=== PATIENT | male | born 1980 | race Caucasian/White ===

== ENCOUNTER 2017-08-20 22:43 | Inpatient (IN) | payer BC, MEDICAID ==
[~2017-08-20] VITALS: Ht 188 cm; Wt 95.3 kg
[~2017-08-20 22:43] MED LIST: BUPR300T53 PO; CLON0.1T PO; ESCI20TA PO; OLAN10TA3 PO; TRAZ-147 PO
[2017-08-20 23:22] LABS: BASOPHILS # (AUTO) 0.07 K/uL (0.00-0.20); BASOPHILS % (AUTO) 0.5 % (0.0-2.0); EOSINOPHILS # (AUTO) 0.15 K/uL (0.00-0.70); EOSINOPHILS % (AUTO) 1.07 % (1.0-6.0); HEMATOCRIT 42.3 % (41-53); HEMOGLOBIN 14.1 g/dL (13.5-17.5); LYMPHOCYTES # (AUTO) 3.1 K/uL (1.0-4.8); LYMPHOCYTES % (AUTO) 22.2 % (22.0-44.0); MEAN CORPUSCULAR HGB CONC 33.4 G/dL (31.0-37.0); MEAN CORPUSCULAR VOLUME 87 fL (80-100); MONOCYTES # (AUTO) 1.2 K/uL (0.1-1.0); MONOCYTES % (AUTO) 8.7 % (2.0-9.0); NEUTROPHILS # (AUTO) 9.4 K/uL (1.8-7.7); NEUTROPHILS % (AUTO) 67.5 % (40.0-70.0); PLATELET COUNT (AUTO) 297 K/uL (150-450); RED BLOOD CELL COUNT(AUTO) 4.87 MIL/uL (4.50-5.90); RED CELL DISTRIBUTION WIDTH 14.1 % (11.5-14.5)
[2017-08-20] MEDS ORDERED: OLANZapine 5 MG RAPDIS TABLET PO PRN (23:30)
[2017-08-20] MEDS ORDERED: LORazepam 2 MG TABLET PO PRN (23:30)
[2017-08-20 23:31] LABS: ANION GAP 15 mmol/L (8-16); CALCIUM, TOTAL 9.4 mg/dL (8.8-10.5); CARBON DIOXIDE 23 mmol/L (22-29); CHLORIDE 99 mmol/L (98-107); CREATININE 1.25 mg/dL (0.60-1.30); GLOMERULAR FILTR. RATE CALC > 60 mL/min (>60); POTASSIUM 3.8 mmol/L (3.5-5.1); SODIUM SERUM 137 mmol/L (136-145); UREA NITROGEN, BLOOD 27 mg/dL (7-18)
[2017-08-20 23:45] LABS: ALANINE AMINOTRANSFERASE 100 U/L (12-78); ALBUMIN 4.1 g/dL (3.4-5.0); ASPARTATE AMINOTRANSFERASE 37 U/L (15-37); BILIRUBIN,TOTAL 1.3 mg/dL (0.1-1.0); CHOL/HDL RATIO 9.1 (4.2-7.3); THYROID STIMULATING HORMONE 2.89 uIU/mL (0.36-3.74); TOTAL PROTEIN, SERUM 7.8 g/dL (6.4-8.2)
[2017-08-20 23:52] LABS: APPEARANCE,URINE CLOUDY (CLEAR); GLUCOSE, URINE (UA) NEGATIVE (NEGATIVE); KETONES,URINE 40 mg/dL (NEGATIVE); LEUKOCYTE ESTERASE ,URINE NEGATIVE (NEGATIVE); OCCULT BLOOD,URINE NEGATIVE (NEGATIVE); PH,URINE 5.5 (5.0-8.0); PROTEIN,URINE TRACE (NEGATIVE)
[2017-08-20 23:53] LABS: ADD UA MICROSCOPIC NO
[2017-08-21] MEDS ORDERED: POLYETHYLENE GLYCOL 3350 17 GM PACKET PO ONE (00:45)
[2017-08-21] MEDS ORDERED: ELVI1TAB3 PO ×2 (01:37→01:54)
[2017-08-21] MEDS ORDERED: DiphenhydrAMINE HCL 50 MG/ML VIAL IM ONE ×2 (02:45)
[2017-08-21] MEDS ORDERED: HALOPERIDOL LACTATE 5 MG/ML VIAL IM ONE ×2 (02:45)
[2017-08-21] MEDS ORDERED: LORazepam 2 MG/ML VIAL IM ONE ×2 (02:45)
[2017-08-21] MEDS: ZOLPIDEM TARTRATE 10 MG TABLET PO PRN (03:48)
[2017-08-21 03:50] VITALS: BP 120/65
[2017-08-21] MEDS ORDERED: INFLUENZA VIRUS VACCINE QVS 2017-18 (3YR+)/PF 60 MCG/0.5 ML SYRINGE IM ONE (04:00)
[2017-08-21] MEDS ORDERED: PNEUMOCOCCAL VACCINE POLYVALENT 0.5 ML VIAL [PPSV23] IM ONE (04:00)
[2017-08-21 09:13] VITALS: BP 107/59
[2017-08-21 16:00] VITALS: BP 112/67
[2017-08-21] MEDS: OLANZapine 10 MG TABLET PO SCH (20:15)
[2017-08-21] MEDS: TraZODone HCL 100 MG TABLET PO SCH (20:15)
[2017-08-22] MEDS: ZOLPIDEM TARTRATE 10 MG TABLET PO PRN ×2 (01:46→20:51)
[2017-08-22] MEDS ORDERED: IBUPROFEN 600 MG TABLET PO PRN (08:45)
[2017-08-22] MEDS ORDERED: ACETAMINOPHEN 325 MG TABLET PO PRN (08:45)
[2017-08-22] MEDS: LORazepam 2 MG TABLET PO PRN (16:59)
[2017-08-22] MEDS: NYSTATIN 500,000 UNITS/5 ML SUSPENSION UDCUP PO SCH ×2 (17:00→22:03)
[2017-08-22] MEDS ORDERED: *PATIENT'S OWN MED [ENTER DRUG, DOSE, FREQUENCY IN COMMENTS] CLINICAL ONE ×2 (17:45)
[2017-08-22] MEDS: OLANZapine 10 MG TABLET PO SCH (20:51)
[2017-08-22] MEDS: TraZODone HCL 100 MG TABLET PO SCH (20:51)
[2017-08-23] MEDS: LORazepam 2 MG TABLET PO PRN ×3 (00:24→17:06)
[2017-08-23 01:57] VITALS: BP 109/68
[2017-08-23] MEDS: COBICISTAT PO SCH (06:32)
[2017-08-23] MEDS: NYSTATIN 500,000 UNITS/5 ML SUSPENSION UDCUP PO SCH ×5 (06:32→21:27)
[2017-08-23] MEDS: EMTRICITABINE PO SCH (06:32)
[2017-08-23] MEDS: ELVITEGRAVIR PO SCH (06:32)
[2017-08-23] MEDS: TENOFOVIR ALAFENAMIDE PO SCH (06:32)
[2017-08-23] MEDS: [UNRECOGNIZED DRUG - OTHER] PO SCH (06:32)
[2017-08-23] MEDS: ATORVASTATIN CALCIUM 40 MG TABLET PO SCH (08:31)
[2017-08-23] MEDS: OLANZapine 10 MG TABLET PO SCH (21:22)
[2017-08-23] MEDS: ZOLPIDEM TARTRATE 10 MG TABLET PO PRN (21:23)
[2017-08-23] MEDS: TraZODone HCL 100 MG TABLET PO SCH (21:23)
[2017-08-24] MEDS: LORazepam 2 MG TABLET PO PRN ×3 (01:02→20:34)
[2017-08-24 01:12] VITALS: BP 119/98
[2017-08-24] MEDS: [UNRECOGNIZED DRUG - OTHER] PO SCH (06:26)
[2017-08-24] MEDS: ELVITEGRAVIR PO SCH (06:26)
[2017-08-24] MEDS: COBICISTAT PO SCH (06:26)
[2017-08-24] MEDS: EMTRICITABINE PO SCH (06:26)
[2017-08-24] MEDS: NYSTATIN 500,000 UNITS/5 ML SUSPENSION UDCUP PO SCH ×5 (06:26→20:57)
[2017-08-24] MEDS: TENOFOVIR ALAFENAMIDE PO SCH (06:26)
[2017-08-24] MEDS: ATORVASTATIN CALCIUM 40 MG TABLET PO SCH (08:23)
[2017-08-24 16:35] VITALS: BP 128/83
[2017-08-24] MEDS: OLANZapine 10 MG TABLET PO SCH (20:34)
[2017-08-24] MEDS: TraZODone HCL 100 MG TABLET PO SCH (20:34)
[2017-08-24] MEDS: ZOLPIDEM TARTRATE 10 MG TABLET PO PRN (20:34)
[2017-08-25 00:21] VITALS: BP 140/86
[2017-08-25] MEDS: [UNRECOGNIZED DRUG - OTHER] PO SCH (06:14)
[2017-08-25] MEDS: NYSTATIN 500,000 UNITS/5 ML SUSPENSION UDCUP PO SCH ×5 (06:14→21:01)
[2017-08-25] MEDS: TENOFOVIR ALAFENAMIDE PO SCH (06:14)
[2017-08-25] MEDS: COBICISTAT PO SCH (06:14)
[2017-08-25] MEDS: ELVITEGRAVIR PO SCH (06:14)
[2017-08-25] MEDS: EMTRICITABINE PO SCH (06:14)
[2017-08-25 08:13] VITALS: BP 118/64
[2017-08-25] MEDS: ATORVASTATIN CALCIUM 40 MG TABLET PO SCH (09:22)
[2017-08-25] MEDS ORDERED: PROMETHAZINE HCL 25 MG TABLET PO PRN (13:30)
[2017-08-25] MEDS ORDERED: TUBERCULIN, PURIFIED PROTEIN DERIVATIVE 5 TU/0.1 ML SYG ID ONE (13:30)
[2017-08-25] MEDS ORDERED: MAGNESIUM HYDROXIDE SUSPENSION 30 ML UDCUP PO PRN (13:30)
[2017-08-25] MEDS ORDERED: GuaiFENesin/D-METHORPHAN [SUGAR-FREE] 200-20MG/10 ML SYRUP UDCUP PO PRN (13:30)
[2017-08-25] MEDS ORDERED: MAG HYDROX/AL HYDROX/SIMETH ES 30 ML SUSPENSION UDCUP PO PRN (13:30)
[2017-08-25] MEDS ORDERED: ACETAMINOPHEN 325 MG TABLET PO PRN (13:30)
[2017-08-25] MEDS: LORazepam 2 MG TABLET PO PRN (16:54)
[2017-08-25] MEDS: THIAMINE HCL 100 MG TABLET PO SCH (16:54)
[2017-08-25] MEDS ORDERED: OLANZapine 5 MG RAPDIS TABLET PO PRN (17:15)
[2017-08-25] MEDS: DIVALPROEX SODIUM 500 MG ER TABLET PO SCH (20:38)
[2017-08-25] MEDS: TraZODone HCL 100 MG TABLET PO SCH (20:39)
[2017-08-25] MEDS: ZOLPIDEM TARTRATE 10 MG TABLET PO PRN (20:39)
[2017-08-25] MEDS ORDERED: QUEtiapine FUMARATE 200 MG TABLET PO SCH (21:00)
[2017-08-25] MEDS ORDERED: OLANZapine 5 MG RAPDIS TABLET PO SCH (21:00)
[2017-08-26 03:30] VITALS: BP 117/69
[2017-08-26] MEDS: LORazepam 2 MG TABLET PO PRN ×3 (03:39→16:44)
[2017-08-26] MEDS: [UNRECOGNIZED DRUG - OTHER] PO SCH (06:19)
[2017-08-26] MEDS: COBICISTAT PO SCH (06:19)
[2017-08-26] MEDS: EMTRICITABINE PO SCH (06:19)
[2017-08-26] MEDS: TENOFOVIR ALAFENAMIDE PO SCH (06:19)
[2017-08-26] MEDS: ELVITEGRAVIR PO SCH (06:19)
[2017-08-26] MEDS: NYSTATIN 500,000 UNITS/5 ML SUSPENSION UDCUP PO SCH ×5 (06:19→20:51)
[2017-08-26 08:11] VITALS: BP 114/62
[2017-08-26] MEDS: NALTREXONE HCL 50 MG TABLET PO SCH (09:00)
[2017-08-26] MEDS: ATORVASTATIN CALCIUM 40 MG TABLET PO SCH (09:00)
[2017-08-26] MEDS: FOLIC ACID 1 MG TABLET PO SCH (09:00)
[2017-08-26] MEDS: THIAMINE HCL 100 MG TABLET PO SCH ×2 (09:00→16:44)
[2017-08-26] MEDS: MULTIVITAMINS WITH MINERALS, THERAPEUTIC TABLET PO SCH (09:00)
[2017-08-26 15:11] LABS: HIV CONFIRM? YES (NP)
[2017-08-26 16:00] VITALS: BP 113/85
[2017-08-26] MEDS: HydrOXYzine PAMOATE 50 MG CAPSULE PO PRN (16:44)
[2017-08-26] MEDS: DIVALPROEX SODIUM 500 MG ER TABLET PO SCH (20:51)
[2017-08-26] MEDS: ZOLPIDEM TARTRATE 10 MG TABLET PO PRN (20:51)
[2017-08-26] MEDS: QUEtiapine FUMARATE 200 MG TABLET PO SCH (20:51)
[2017-08-26] MEDS: TraZODone HCL 100 MG TABLET PO SCH (20:51)
[2017-08-27] MEDS: NYSTATIN 500,000 UNITS/5 ML SUSPENSION UDCUP PO SCH ×5 (05:31→21:04)
[2017-08-27 05:52] VITALS: BP 111/84
[2017-08-27] MEDS: TENOFOVIR ALAFENAMIDE PO SCH (06:36)
[2017-08-27] MEDS: ELVITEGRAVIR PO SCH (06:36)
[2017-08-27] MEDS: [UNRECOGNIZED DRUG - OTHER] PO SCH (06:36)
[2017-08-27] MEDS: COBICISTAT PO SCH (06:36)
[2017-08-27] MEDS: EMTRICITABINE PO SCH (06:36)
[2017-08-27 08:21] VITALS: BP 121/69
[2017-08-27] MEDS: THIAMINE HCL 100 MG TABLET PO SCH ×2 (09:25→16:54)
[2017-08-27] MEDS: MULTIVITAMINS WITH MINERALS, THERAPEUTIC TABLET PO SCH (09:25)
[2017-08-27] MEDS: NALTREXONE HCL 50 MG TABLET PO SCH (09:25)
[2017-08-27] MEDS: ATORVASTATIN CALCIUM 40 MG TABLET PO SCH (09:25)
[2017-08-27] MEDS: FOLIC ACID 1 MG TABLET PO SCH (09:25)
[2017-08-27 16:00] VITALS: BP 116/67
[2017-08-27] MEDS: HydrOXYzine PAMOATE 50 MG CAPSULE PO PRN (16:54)
[2017-08-27] MEDS: LORazepam 2 MG TABLET PO PRN (16:54)
[2017-08-27] MEDS: QUEtiapine FUMARATE 200 MG TABLET PO SCH (20:38)
[2017-08-27] MEDS: DIVALPROEX SODIUM 500 MG ER TABLET PO SCH (20:38)
[2017-08-27] MEDS: TraZODone HCL 100 MG TABLET PO SCH (20:38)
[2017-08-28 05:16] VITALS: BP 118/75
[2017-08-28] MEDS: NYSTATIN 500,000 UNITS/5 ML SUSPENSION UDCUP PO SCH ×5 (06:06→21:11)
[2017-08-28] MEDS: [UNRECOGNIZED DRUG - OTHER] PO SCH (06:38)
[2017-08-28] MEDS: ELVITEGRAVIR PO SCH (06:38)
[2017-08-28] MEDS: TENOFOVIR ALAFENAMIDE PO SCH (06:38)
[2017-08-28] MEDS: EMTRICITABINE PO SCH (06:38)
[2017-08-28] MEDS: COBICISTAT PO SCH (06:38)
[2017-08-28] MEDS: FOLIC ACID 1 MG TABLET PO SCH (08:59)
[2017-08-28] MEDS: THIAMINE HCL 100 MG TABLET PO SCH ×2 (08:59→16:21)
[2017-08-28] MEDS: NALTREXONE HCL 50 MG TABLET PO SCH (08:59)
[2017-08-28] MEDS: CLOTRIMAZOLE 1% 15 GM CREAM TP SCH ×2 (08:59→16:21)
[2017-08-28] MEDS: ATORVASTATIN CALCIUM 40 MG TABLET PO SCH (08:59)
[2017-08-28] MEDS: MULTIVITAMINS WITH MINERALS, THERAPEUTIC TABLET PO SCH (08:59)
[2017-08-28 09:19] VITALS: BP 101/59
[2017-08-28 16:30] VITALS: BP 112/63
[2017-08-28] MEDS: TraZODone HCL 100 MG TABLET PO SCH (20:30)
[2017-08-28] MEDS: QUEtiapine FUMARATE 200 MG TABLET PO SCH (20:30)
[2017-08-28] MEDS: DIVALPROEX SODIUM 500 MG ER TABLET PO SCH (20:30)
[2017-08-29 00:10] VITALS: BP 117/71
[2017-08-29] MEDS: ZOLPIDEM TARTRATE 10 MG TABLET PO PRN ×2 (01:05→20:35)
[2017-08-29] MEDS: NYSTATIN 500,000 UNITS/5 ML SUSPENSION UDCUP PO SCH ×5 (05:57→20:34)
[2017-08-29] MEDS: ELVITEGRAVIR PO SCH (06:11)
[2017-08-29] MEDS: [UNRECOGNIZED DRUG - OTHER] PO SCH (06:11)
[2017-08-29] MEDS: EMTRICITABINE PO SCH (06:11)
[2017-08-29] MEDS: TENOFOVIR ALAFENAMIDE PO SCH (06:11)
[2017-08-29] MEDS: COBICISTAT PO SCH (06:11)
[2017-08-29] MEDS: MULTIVITAMINS WITH MINERALS, THERAPEUTIC TABLET PO SCH (08:23)
[2017-08-29] MEDS: CLOTRIMAZOLE 1% 15 GM CREAM TP SCH ×2 (08:23→16:48)
[2017-08-29] MEDS: FOLIC ACID 1 MG TABLET PO SCH (08:23)
[2017-08-29] MEDS: THIAMINE HCL 100 MG TABLET PO SCH ×2 (08:23→16:49)
[2017-08-29] MEDS: NALTREXONE HCL 50 MG TABLET PO SCH (08:23)
[2017-08-29] MEDS: ATORVASTATIN CALCIUM 40 MG TABLET PO SCH (08:23)
[2017-08-29 16:00] VITALS: BP 112/67
[2017-08-29] MEDS: HydrOXYzine PAMOATE 50 MG CAPSULE PO PRN (16:49)
[2017-08-29] MEDS: LORazepam 2 MG TABLET PO PRN (16:49)
[2017-08-29] MEDS: DIVALPROEX SODIUM 500 MG ER TABLET PO SCH (20:34)
[2017-08-29] MEDS: QUEtiapine FUMARATE 200 MG TABLET PO SCH (20:34)
[2017-08-29] MEDS: TraZODone HCL 100 MG TABLET PO SCH (20:34)
[2017-08-30] MEDS: NYSTATIN 500,000 UNITS/5 ML SUSPENSION UDCUP PO SCH ×5 (06:18→22:01)
[2017-08-30] MEDS: EMTRICITABINE PO SCH (06:19)
[2017-08-30] MEDS: COBICISTAT PO SCH (06:19)
[2017-08-30] MEDS: TENOFOVIR ALAFENAMIDE PO SCH (06:19)
[2017-08-30] MEDS: [UNRECOGNIZED DRUG - OTHER] PO SCH (06:19)
[2017-08-30] MEDS: ELVITEGRAVIR PO SCH (06:19)
[2017-08-30 08:23] VITALS: BP 108/65
[2017-08-30] MEDS: ATORVASTATIN CALCIUM 40 MG TABLET PO SCH (08:30)
[2017-08-30] MEDS: CLOTRIMAZOLE 1% 15 GM CREAM TP SCH ×2 (08:30→16:17)
[2017-08-30] MEDS: NALTREXONE HCL 50 MG TABLET PO SCH (08:30)
[2017-08-30] MEDS: LORazepam 2 MG TABLET PO PRN ×2 (12:15→16:17)
[2017-08-30 16:00] VITALS: BP 125/70
[2017-08-30] MEDS: QUEtiapine FUMARATE 200 MG TABLET PO SCH (20:41)
[2017-08-30] MEDS: DIVALPROEX SODIUM 500 MG ER TABLET PO SCH (20:41)
[2017-08-30] MEDS: TraZODone HCL 100 MG TABLET PO SCH (20:41)
[2017-08-31] MEDS: ZOLPIDEM TARTRATE 10 MG TABLET PO PRN (00:41)
[2017-08-31 06:29] VITALS: BP 116/77
[2017-08-31] MEDS: NYSTATIN 500,000 UNITS/5 ML SUSPENSION UDCUP PO SCH ×5 (06:44→21:05)
[2017-08-31] MEDS: ELVITEGRAVIR PO SCH (06:45)
[2017-08-31] MEDS: EMTRICITABINE PO SCH (06:45)
[2017-08-31] MEDS: COBICISTAT PO SCH (06:45)
[2017-08-31] MEDS: TENOFOVIR ALAFENAMIDE PO SCH (06:45)
[2017-08-31] MEDS: [UNRECOGNIZED DRUG - OTHER] PO SCH (06:45)
[2017-08-31] MEDS: CLOTRIMAZOLE 1% 15 GM CREAM TP SCH ×2 (08:21→17:03)
[2017-08-31] MEDS: NALTREXONE HCL 50 MG TABLET PO SCH (08:21)
[2017-08-31] MEDS: ATORVASTATIN CALCIUM 40 MG TABLET PO SCH (08:21)
[2017-08-31 16:00] VITALS: BP 112/68
[2017-08-31] MEDS: TraZODone HCL 100 MG TABLET PO SCH (20:26)
[2017-08-31] MEDS: DIVALPROEX SODIUM 500 MG ER TABLET PO SCH (20:26)
[2017-08-31] MEDS: QUEtiapine FUMARATE 200 MG TABLET PO SCH (20:26)
[2017-09-01 02:25] VITALS: BP 118/73
[2017-09-01] MEDS: QUEtiapine FUMARATE 100 MG TABLET PO PRN (02:28)
[2017-09-01] MEDS: NYSTATIN 500,000 UNITS/5 ML SUSPENSION UDCUP PO SCH ×5 (06:14→22:00)
[2017-09-01] MEDS: EMTRICITABINE PO SCH (06:23)
[2017-09-01] MEDS: ELVITEGRAVIR PO SCH (06:23)
[2017-09-01] MEDS: COBICISTAT PO SCH (06:23)
[2017-09-01] MEDS: [UNRECOGNIZED DRUG - OTHER] PO SCH (06:23)
[2017-09-01] MEDS: TENOFOVIR ALAFENAMIDE PO SCH (06:23)
[2017-09-01 08:13] VITALS: BP 112/69
[2017-09-01] MEDS: NALTREXONE HCL 50 MG TABLET PO SCH (08:49)
[2017-09-01] MEDS: CLOTRIMAZOLE 1% 15 GM CREAM TP SCH ×2 (08:50→17:03)
[2017-09-01] MEDS: ATORVASTATIN CALCIUM 40 MG TABLET PO SCH (08:50)
[2017-09-01 16:00] VITALS: BP 113/73
[2017-09-01] MEDS: QUEtiapine FUMARATE 200 MG TABLET PO SCH (20:52)
[2017-09-01] MEDS: DIVALPROEX SODIUM 500 MG ER TABLET PO SCH (20:52)
[2017-09-01] MEDS: TraZODone HCL 100 MG TABLET PO SCH (20:52)
[2017-09-02 05:50] VITALS: BP 119/73
[2017-09-02] MEDS: NYSTATIN 500,000 UNITS/5 ML SUSPENSION UDCUP PO SCH ×5 (06:33→20:32)
[2017-09-02] MEDS: EMTRICITABINE PO SCH (06:33)
[2017-09-02] MEDS: COBICISTAT PO SCH (06:33)
[2017-09-02] MEDS: TENOFOVIR ALAFENAMIDE PO SCH (06:33)
[2017-09-02] MEDS: ELVITEGRAVIR PO SCH (06:33)
[2017-09-02] MEDS: [UNRECOGNIZED DRUG - OTHER] PO SCH (06:33)
[2017-09-02 08:32] VITALS: BP 114/60
[2017-09-02] MEDS: CLOTRIMAZOLE 1% 15 GM CREAM TP SCH ×2 (09:02→17:59)
[2017-09-02] MEDS: ATORVASTATIN CALCIUM 40 MG TABLET PO SCH (09:02)
[2017-09-02] MEDS: NALTREXONE HCL 50 MG TABLET PO SCH (09:02)
[2017-09-02] MEDS: QUEtiapine FUMARATE 100 MG TABLET PO PRN (10:58)
[2017-09-02 16:16] VITALS: BP 119/68
[2017-09-02] MEDS ORDERED: TRAZ-147 PO (16:51)
[2017-09-02] MEDS ORDERED: DIVA500T52 PO (16:51)
[2017-09-02] MEDS ORDERED: NALT50TA PO (16:51)
[2017-09-02] MEDS: DIVALPROEX SODIUM 500 MG ER TABLET PO SCH (20:31)
[2017-09-02] MEDS: TraZODone HCL 100 MG TABLET PO SCH (20:31)
[2017-09-02] MEDS ORDERED: QUEtiapine FUMARATE 300 MG TABLET PO SCH (21:00)
[2017-09-03 05:25] VITALS: BP 120/70
[2017-09-03] MEDS: NYSTATIN 500,000 UNITS/5 ML SUSPENSION UDCUP PO SCH ×5 (07:04→21:24)
[2017-09-03] MEDS: COBICISTAT PO SCH (07:05)
[2017-09-03] MEDS: ELVITEGRAVIR PO SCH (07:05)
[2017-09-03] MEDS: TENOFOVIR ALAFENAMIDE PO SCH (07:05)
[2017-09-03] MEDS: [UNRECOGNIZED DRUG - OTHER] PO SCH (07:05)
[2017-09-03] MEDS: EMTRICITABINE PO SCH (07:05)
[2017-09-03] MEDS: CLOTRIMAZOLE 1% 15 GM CREAM TP SCH ×2 (08:32→16:33)
[2017-09-03] MEDS: NALTREXONE HCL 50 MG TABLET PO SCH (08:32)
[2017-09-03] MEDS: ATORVASTATIN CALCIUM 40 MG TABLET PO SCH (08:32)
[2017-09-03 09:22] VITALS: BP 118/58
[2017-09-03 16:00] VITALS: BP 125/76
[2017-09-03] MEDS ORDERED: QUET300T18 PO (17:17)
[2017-09-03] MEDS: DIVALPROEX SODIUM 500 MG ER TABLET PO SCH (20:31)
[2017-09-03] MEDS: TraZODone HCL 100 MG TABLET PO SCH (20:31)
[2017-09-03] MEDS ORDERED: QUEtiapine FUMARATE 200 MG TABLET PO SCH (21:00)
[2017-09-04 04:42] VITALS: BP 121/82
[2017-09-04] MEDS: EMTRICITABINE PO SCH (06:16)
[2017-09-04] MEDS: [UNRECOGNIZED DRUG - OTHER] PO SCH (06:16)
[2017-09-04] MEDS: ELVITEGRAVIR PO SCH (06:16)
[2017-09-04] MEDS: COBICISTAT PO SCH (06:16)
[2017-09-04] MEDS: TENOFOVIR ALAFENAMIDE PO SCH (06:16)
[2017-09-04] MEDS: NYSTATIN 500,000 UNITS/5 ML SUSPENSION UDCUP PO SCH ×2 (06:44→09:43)
[2017-09-04 08:22] VITALS: BP 138/62
[2017-09-04] MEDS: ATORVASTATIN CALCIUM 40 MG TABLET PO SCH (09:43)
[2017-09-04] MEDS: QUEtiapine FUMARATE 100 MG TABLET PO PRN (09:43)
[2017-09-04] MEDS: CLOTRIMAZOLE 1% 15 GM CREAM TP SCH (09:43)
[2017-09-04] MEDS: NALTREXONE HCL 50 MG TABLET PO SCH (09:43)
[2017-09-04] MEDS ORDERED: TRAZ-147 PO (11:35)
[2017-09-04] MEDS ORDERED: QUET200T PO (11:35)
[2017-09-04] MEDS ORDERED: NALT50TA6 PO (11:35)
[2017-09-04] MEDS ORDERED: DIVA500T52 PO (11:35)
== END 2017-09-04 13:15 | disposition home or self-care (01) | DRG 885 ==
LOC: EMS 22:44 → B3A 08-21 00:02
PROVIDERS: ADMIT Psychiatry & Neurology Psychiatry; ATTEND Psychiatry & Neurology Psychiatry
DX: F25.0 Schizoaffective disorder, bipolar type (principal); R45.851 Suicidal ideations; Z78.1 Physical restraint status; K59.00 Constipation, unspecified; E78.5 Hyperlipidemia, unspecified; G47.00 Insomnia, unspecified; D72.829 Elevated white blood cell count, unspecified; E86.0 Dehydration; Z91.19 Patient's noncompliance with other medical treatment and regimen; Z91.14 Patient's other noncompliance with medication regimen; Z28.21 Immunization not carried out because of patient refusal; Z79.899 Other long term (current) drug therapy
CPT/HCPCS: 83036; 84443; 86701; 86702; 87081; 87389; 90471; 99285; G0480; J1200; J1630; J2060